=== PATIENT | female | born 1975 | race Two or more races ===

== ENCOUNTER 2025-02-20 21:29 | Emergency (ER) | payer BC, SELFPAY ==
[2025-02-20 21:31] VITALS: BMI 32.1
--- NOTE | 2025-02-20 21:31 | EKG_ITS ---
[facility] Test Date: 2025-02-20 Pat Name: ANA VILLALPANDO Department: Room: - Gender: Female Cost Control Analyst: : 1975 Requested By: ED Temporary Provider Order Number: [id number] Reading MD: ED Temporary Provider Measurements Intervals [place] Rate: 98 P: 57 NV: 149 QRS: -13 QRSD: 76 T: 48 QT: 356 QTc: 456 Interpretive Statements SINUS RHYTHM LOW QRS VOLTAGE IN PRECORDIAL LEADS [QRS DEFLECTION < 1.0 mV IN CHEST LEADS] PATTERN CONSISTENT WITH PULMONARY DISEASE Compared to ECG 06/21/2023 08:55:20 Low QRS voltage now present /store/S0/[id number].pdf
--- NOTE | 2025-02-20 21:38 | XR_ITS ---
Examination: PA chest lateral 2 views Any liver biopsy PA lateral chest 2 views Date and time: February 20, 2025 2200 hours INDICATIONS: Chest pain today. FINDINGS: Normal heart size Lungs are clear. The osseous structures are intact IMPRESSION: No active disease
[2025-02-20 22:01] LABS: Basophils # (Auto) 0.0 Thou/mm3 (0.0-0.2); Basophils % (Auto) 0 % (0-2.5); Eosinophils # (Auto) 0.1 Thou/mm3 (0.0-0.5); Eosinophils % (Auto) 2 % (0-10); Hematocrit 42.4 % (36.0-46.0); Hemoglobin 14.6 g/dL (12.0-16.0); Immature Granulocytes Auto 0.04 Thou/mm3 (0.00-0.00); Lymphocytes # (Auto) 3.0 Thou/mm3 (1.0-4.8); Lymphocytes % (Auto) 31 % (10-50); Mean Corpuscular HGB Conc 34.4 g/dl (31.0-37.0); Mean Corpuscular Hemoglobin 29.9 pg (25.0-35.0); Mean Corpuscular Volume 87 fL (80-100); Monocytes # (Auto) 0.5 Thou/mm3 (0.0-0.8); Monocytes % (Auto) 5 % (0-12); Neutrophils # (Auto) 5.9 Thou/mm3 (1.8-7.7); Neutrophils % (Auto) 61 % (37-80); Nucleated Red Blood Cell # 0.00 Thou/mm3 (0.00-0.00); Nucleated Red Blood Cell % 0 /100 WBC (0); Platelet Count 222 Thou/mm3 (140-440); RDW Standard Deviation 39.7 fL (36.4-46.3); Red Blood Count 4.89 Miln/mm3 (4.00-5.20); White Blood Count 9.6 Thou/mm3 (3.6-11.0)
[2025-02-20 22:11] LABS: INR 0.9 (0.9-1.3); Partial Thromboplastin Time 27.6 Seconds (22.0-36.0); Prothrombin Time 10.3 Seconds (9.0-12.2)
[2025-02-20 22:16] VITALS: BP 131/85; PULSE 97; RESP 20; TEMP 36.9; O2SAT 95
[2025-02-20 22:16] LABS: B-Type Natriuretic Peptide < 20 pg/mL (0-100)
[2025-02-20 22:18] LABS: Alanine Aminotransferase 35 U/L (10-49); Albumin, Serum 4.7 gm/dL (3.5-5.0); Albumin/Globulin Ratio 1.9 (1.2-2.2); Alkaline Phosphatase 106 U/L (46-116); Anion Gap 12 (7-16); Aspartate Amino Transferase 20 U/L (0-34); BUN/Creatinine Ratio 16 Ratio (12-20); Bilirubin,Total 0.2 mg/dL (0.3-1.2); Blood Urea Nitrogen 11 mg/dL (9-23); Calcium 9.3 mg/dL (8.3-10.6); Calcium (Corrected) 9.3 mg/dL (8.5-10.1); Carbon Dioxide 23.8 mMol/L (20.0-31.0); Chloride 107 mMol/L (98-107); Creatinine (Component) 0.7 mg/dL (0.6-1.3); Estimated Creatinine Clearance 112.6 mL/min (>60); Globulin 2.5 gm/dL (2.3-3.5); Glucose 110 mg/dL (74-106); LDH (Lactate Dehydrogenase) 191 U/L (120-246); Magnesium 1.9 mg/dL (1.6-2.6); Osmolality,Calculated 285 (275-295); Potassium 3.6 mMol/L (3.4-5.1); Sodium 143 mMol/L (136-145); Total Protein 7.2 gm/dL (5.7-8.2); Troponin I < 0.002 ng/mL (0.0-0.045); eGFR > 60 See Note
--- NOTE | 2025-02-20 22:31 | EDNOTE_ITS ---
ED Chest Pain RME/HPI General Chief Complaint: Chest Pain Stated Complaint: CHEST AREA PAIN, NAUSEA, SOB Arrival date/time: 02/20/25 21:29 RME / HPI RME / HPI narrative: Dr. Alberts?s Main ED Evaluation: 49yo female presenting with onset of substernal chest tightness/pressure x 2114 that started tapering on ED arrival. No pleuritic or exertional component. She does have mild shortness of breath and nausea, but no emesis. She reports diaphoresis and palpitations in addition to lightheadedness, but denies near syncope. Cardiac risk factors: glucose intolerance; no HTN, HLD, tobacco use or previous cardiac disease. PE risk factors: no recent immobilization, surgeries, or HRT. No tobacco use or prior hx DVT/PE. Related Data Previous Rx's ?Medication ?Instructions ?Recorded ipratropium bromide 42 mcg (0.06 2 spray intranasal TI D #15 mL 10/15/18 %) nasal spray loratadine 10 mg tablet (Allergy 10 mg PO QDAY allergy symptoms #30 10/15/18 Relief (loratadine)) tabs diphenhydramine HCl 25 mg tablet 25 mg PO Q4H PRN qian rgic reaction 10/22/18 (Benadryl Allergy) #60 tabs esomeprazole magnesium 5 mg 20 mg PO QDAY 28 days #30 ea 02/21/25 granules delayed release for susp (Nexium Packet) Allergies Allergy/AdvReac Type Severity Reaction Status Date / Time No Known Allergies Allergy Verified 02/20/25 21:30 Review of Systems Review of Systems Systems Reviewed: All systems reviewed, normal except as documented Past Medical History Past Medical History CARDIAC: Negative Congestive Heart Failure RESPIRATORY: Negative Chronic Obstructive Pulmonary Disease (COPD) GENITOURINARY: Negative Renal Disease ENDOCRINE: Negative Diabetes Mellitus Type 1 or Diabetes Mellitus Type 2 Social History SMOKING STATUS: Never smoker ED Exam Narrative Physical exam: GENERAL APPEARANCE: alert and oriented x 4, well-developed, well-nourished, appears apprehensive, no acute distress VITALS: All vitals were reviewed and the pulse ox is 95% on room air, which is normal according to my interpretation. HEENT: Normocephalic, atraumatic; pupils equal, round, reactive to light; EOMI; mucous membranes pink, moist; oropharynx clear NECK: Supple LUNGS: CTABL; no wheezes, no rales, no rhonchi CHEST: no reproducible tenderness HEART: Mild tachycardic, regular rhythm; normal S1, S2; no murmurs ABDOMEN: non distended; normal BS; soft, no tenderness, no guarding, no rebound; no masses, no organomegaly, no hernia BACK: no CVA tenderness EXTREMITIES: atraumatic; no edema; nontender NEUROLOGIC: awake; alert and oriented x4; cranial nerves II-XII grossly intact; no focal sensory or motor deficits PSYCHIATRIC: appropriate mood and affect SKIN: warm, dry, normal color; no rashes Course Course Course Narrative: CXR is ordered for determining the etiology of chest pain. Quality Measures none Orders Category Date Time Status EKG (ED ONLY) *Do not use* NOW Care 02/20/25 21:31 Completed EKG (ED Only) Stat Exams 02/20/25 21:31 Draft XR chest 2V Stat Exams 02/20/25 21:38 Completed B-Type Natriuretic Peptide Stat Lab 02/20/25 21:46 Completed CBC Stat Lab 02/20/25 21:46 Completed Comprehensive Metabolic Panel Stat Lab 02/20/25 21:46 Completed D-Dimer Stat Lab 02/20/25 22:57 Completed Drug Screen,Urine Stat Lab 02/20/25 22:49 Completed LDH (Lactate Dehydrogenase) Stat Lab 02/20/25 21:46 Completed Magnesium Stat Lab 02/20/25 21:46 Completed Partial Thromboplastin Time Stat Lab 02/20/25 21:46 Completed Prothrombin Time with INR Stat Lab 02/20/25 21:46 Completed Troponin I Stat Lab 02/20/25 21:46 Completed Troponin I Stat Lab 02/20/25 22:57 Completed Urinalysis Stat Lab 02/20/25 22:49 Completed Vital Signs Vital signs: Vital Signs Temperature 98.4 F 02/20/25 22:16 Pulse Rate 97 02/20/25 22:16 Respiratory Rate 20 02/20/25 22:16 Blood Pressure 131/85 H 02/20/25 22:16 Pulse Oximetry (%) 95 02/20/25 22:16 Oxygen Delivery Method Room Air 02/20/25 22:16 Chest Pain MDM Narrative MDM Narrative:: Scribe Attestation: 02/20/25 Shira Guevara am scribing for and in the presence of Dr. Alberts. 49yo female presenting with onset of substernal chest tightness/pressure x 2114 that started tapering on ED arrival. No pleuritic or exertional component. She does have mild shortness of breath and nausea, but no emesis. Please see PE findings. Lab markers demonstrate normal CBC, coagulation profile, and chemistries. Troponin undetected. Patient observed for an extended period of time and underwent serial enzymatic analysis, which was unremarkable. D-Dimer is negative. Patient's chest pain is atypical. Patient will be treated for nonspecific chest pain and referred for outpatient stress test. Will place her on PPI Patient data External records reviewed:: [facility] previous records (Per chart review, patient was seen here on 06/21/23 for anxiety.) Clinical information provided by:: patient Social determinants that could affect healthcare access:: none Patient has the following chronic illnesses:: none How is presenting disease/condition affected by chronic disease/condition?: no chronic disease Evaluation data The following diagnostics were reviewed and interpreted by me:: lab results, radiology exam(s) and EKG tracing(s) Lab and/or radiology exams considered but not ordered:: none Interpretation Summary: EKG done at 2218, NSR, rate of 98, no acute ST segment changes, ?LVH by voltage crieteria, left axis deviation, no ectopy, according to my interpretation. [facility] Report Signed Patient: ANA VILLALPANDO [facility]. Record#: [id number] Birthdate: 1975 Age/Sex: 49 / F Location: [facility] Attending Dr: Ordering Physician: Adarsh Sanchez DO Date of Service: 02/20/25 Procedure(s): XR chest 2V Accession Number(s): [id number] cc: Adarsh Sanchez DO; Larry Reid MD; NO PRIMARY/FAMILY,PHYSICIAN~ Examination: PA chest lateral 2 views Any liver biopsy PA lateral chest 2 views Date and time: February 20, 2025 2200 hours INDICATIONS: Chest pain today. FINDINGS: Normal heart size Lungs are clear. The osseous structures are intact IMPRESSION: No active disease Dictated By: Larry Reid MD Signed By: <Electronically signed by Larry Reid MD in OV> 02/20/25 2240 Medications / Prescriptions Medications or Prescriptions considered but not ordered:: none Medication administrations:: see above, if any Consultations Consultation(s) initiated? (list below): No Diagnosis Chest Pain Differential Diagnosis: atypical chest pain, st elevation myocardial infarction, costochondritis and other (NSTEMI) Most likely diagnosis given after review of the tests above:: Acute nonspecific chest pain with low risk of coronary artery disease Admission Indicated Admission indicated?: not indicated Admission Request Was there a request for admission?: No Disposition Plan Disposition Plan: Discharge Discharge Attestation Discharge Attestation: The patient and all family members were given an opportunity to ask questions and understood the discharge instructions. Discharge instructions specifically effects, indications for sooner follow up or return to the emergency department, and the expected course of current diagnosis. Patient condition: Stable Discharge Plan Plan Patient Disposition: HOME (Self Care) Prescriptions/Referrals Prescriptions/Med Rec: New esomeprazole magnesium [Nexium Packet] [address] for susp in packet 20 mg PO QDAY 28 Days Qty: 30 0RF No Action ipratropium bromide 42 mcg (0.06 %) spray,non-aerosol 2 spray INTRANASAL TID Qty: 15 0RF Rx Instructions: administer into each nostril; wait 30 seconds between sprays loratadine [Allergy Relief (loratadine)] 10 mg tablet 10 mg PO QDAY Qty: 30 3RF diphenhydramine HCl [Benadryl Allergy] 25 mg tablet 25 mg PO Q4H PRN (Reason: allergic reaction) Qty: 60 0RF Referrals: No Primary/Family,Physician [Primary Care Provider] - In 1 week Problem List Clinical Impression: Acute nonspecific chest pain with low risk of coronary artery disease Patient/Caregiver Discharge Instructions Discharge Activity: activity as tolerated Education Materials: ED Chest Pain, Noncardiac Additional Instructions: Medications as directed. Follow-up with primary care doctor for consideration of outpatient stress testing. Return if worsening Print Language: Uzbek Stand Alone Forms: Isabella Award Info., Patient Portal Info Letter
[2025-02-20 22:52] LABS: Collection Type, Urine Clean Catch
[2025-02-20 22:57] LABS: Bilirubin,Urine Negative (Negative); Blood,Urine Negative (Negative); Clarity,Urine Clear (Clear/Hazy); Color,Urine Yellow (Lt Yel-Yel); Glucose, Urine 1+ (Negative); Ketones,Urine Negative (Negative); Leukocyte Esterase,Urine Positive (Negative); Nitrite,Urine Negative (Negative); PH,Urine 6.0 (5.0-7.0); Protein,Urine Trace (Neg - Trace); RBC,Urine 3 /hpf (0-3); Specific Gravity,Urine 1.040 (1.001-1.035); Squamous Epithelial Cell,Urine 1 /hpf (0-5); Urobilinogen,Urine 3.0 mg/dL (0.0-1.0); WBC,Urine 2 /hpf (0-5)
[2025-02-20 23:06] LABS: Amphetamine/Methamp Scrn,U Negative (Negative); Barbiturate Screen,Urine Negative (Negative); Benzodiazepines Screen,Urine Positive (Negative); Benzoylecgonine Screen, Ur Negative (Negative); Fentanyl Screen,Urine Negative (Negative); Opiate Screen,Urine Negative (Negative); THC Screen,Urine Negative (Negative)
[2025-02-20 23:26] LABS: D-Dimer 321 ng/mL (<600)
[2025-02-20 23:28] LABS: Troponin I < 0.002 ng/mL (0.0-0.045)
[2025-02-21 00:56] VITALS: BP 127/69; PULSE 82; RESP 18; TEMP 36.5; O2SAT 96
[2025-02-21 01:49] VITALS: RESP 18
== END 2025-02-21 01:50 | disposition home or self-care (01) ==
PROVIDERS: Emergency Provider Emergency Medicine
DX: R07.89 Other chest pain (principal); R06.02 Shortness of breath
CPT/HCPCS: 36415; 71046; 80053; 80307; 81001; 83615; 83735; 83880; 84484; 85025; 85379; 85610; 85730; 93005; 99284